=== PATIENT | female | born 1995 | race Caucasian/White ===

== ENCOUNTER 2017-07-21 16:30 | Emergency (ER) | payer BC ==
[~2017-07-21] VITALS: Ht 170.2 cm; Wt 80.7 kg
--- NOTE | 2017-07-21 16:32 | ER Report ---
History and Physical Time Seen By MD: 16:31 HPI/ROS I did not see this patient. See note by MLP Allergies: Coded Allergies: No Known Drug Allergies (Unverified , 07/21/17) Home Meds Active Scripts Benzonatate 100 Mg Cap (TESSALON PERLE 100 MG CAP) 100 Mg Capsule, 100 MG PO TID Y for COUGH, #15 CAP Prov:RACHEAL SORIA PA-C 07/21/17 Reported Medications Albuterol Sulfate (PROVENTIL HFA) 6.7 Gm Inh, 1-2 PUFF INH 3-4XD, INH 07/21/17 Constitutional Vital Sign - Last 24 Hours 07/21/17 16:38 Pulse 109 Resp 16 B/P (MAP) 140/82 Pulse Ox 95 Medical Decision Making Data Points Laboratory Hematology Test 07/21/17 16:45 Influenza Virus Type A (PCR) Negative (NEGATIVE) Influenza Virus Type B (PCR) Negative (NEGATIVE) Group A Streptococcus Screen Negative (NEGATIVE) Chemistry Test 07/21/17 16:45 Influenza Virus Type A (PCR) Negative (NEGATIVE) Influenza Virus Type B (PCR) Negative (NEGATIVE) Group A Streptococcus Screen Negative (NEGATIVE) Microbiology Microbiology Date/Time Source Procedure Growth Status 07/21/17 16:45 Throat Group A Streptococcus Screen ([facility]) - Final CONFIRMATORY CULTURE NEGATIVE FOR WILLIAM... Complete ED Course/Re-evaluation ED Course see mlp note Decision to Disposition Date: Jul 25, 2017 Decision to Disposition Time: 07:25 (see MLP note for actual times) Depart Departure Latest Vital Signs Vital Signs Date Time Temp Pulse Resp B/P (MAP) Pulse Ox O2 Delivery O2 Flow Rate FiO2 07/21/17 16:38 109 16 140/82 95 New Scripts Benzonatate 100 Mg Cap (TESSALON PERLE 100 MG CAP) 100 Mg Capsule 100 MG PO TID Y for COUGH, #15 CAP Prov: RACHEAL SORIA PA-C 07/21/17 JUDITH RODRIGUEZ MD Jul 21, 2017 16:32
[2017-07-21 16:38] VITALS: BP 140/82
[2017-07-21] MEDS ORDERED: ALB6.7R INH (16:38)
--- NOTE | 2017-07-21 16:55 | ER Report ---
History and Physical Time Seen By MD: 16:35 Hx. of Stated Complaint: PATIENT PRESENTS WITH COUGH AND CHEST PAIN FROM COUGHING WELL SORE THROAT , HORSE VOICE SINCE EARLIER THIS WEEK. TOOK A FLIGHT TO [place] AND SINCE THEN SHE HAS HAD EAR PAIN HPI/ROS CHIEF COMPLAINT: Cough, sore throat HISTORY OF PRESENT ILLNESS: Patient is a 21-year-old female accompanied by her significant other, who presents the ED with complaint of cough and sore throat for the past 3 days. Patient states that she has been hoarse recently. She denies any fever or shortness of breath. She has been taking Tylenol with minimal relief. REVIEW OF SYSTEMS: Constitutional: No fever, no chills. Eyes: No discharge. ENT: See history of present illness. Cardiovascular: No chest pain, no palpitations. Respiratory: See history of present illness. Musculoskeletal: No back pain. Skin: No rashes. Neurological: No headache. Allergies: Coded Allergies: No Known Drug Allergies (Unverified , 07/21/17) Home Meds Active Scripts Benzonatate 100 Mg Cap (TESSALON PERLE 100 MG CAP) 100 Mg Capsule, 100 MG PO TID Y for COUGH, #15 CAP Prov:RACHEAL SORIA PA-C 07/21/17 Reported Medications Albuterol Sulfate (PROVENTIL HFA) 6.7 Gm Inh, 1-2 PUFF INH 3-4XD, INH 07/21/17 Reviewed Nurses Notes: Yes Old Medical Records Reviewed: Yes Hx Substance Use Disorder: No Constitutional Vital Sign - Last 24 Hours 07/21/17 16:38 Pulse 109 Resp 16 B/P (MAP) 140/82 Pulse Ox 95 Physical Exam General Appearance: The patient is alert, has no immediate need for airway protection and no signs of toxicity. She appears to be in no acute distress. Eyes: Pupils equal and round no pallor or injection. ENT, Mouth: Mucous membranes are moist. Respiratory: There are no retractions, lungs are clear to auscultation. Cardiovascular: Regular rate and rhythm. Skin: Warm and dry, no rashes. Musculoskeletal: Neck is supple non tender. Extremities are nontender, nonswollen and have full range of motion. DIFFERENTIAL DIAGNOSIS: After history and physical exam differential diagnosis was considered for cough and sore throat including pneumonia, strep pharyngitis , upper respiratory infection, influenza. This is an incomplete list. Medical Decision Making Data Points Laboratory Hematology Test 07/21/17 16:45 Influenza Virus Type A (PCR) Negative (NEGATIVE) Influenza Virus Type B (PCR) Negative (NEGATIVE) Group A Streptococcus Screen Negative (NEGATIVE) Chemistry Test 07/21/17 16:45 Influenza Virus Type A (PCR) Negative (NEGATIVE) Influenza Virus Type B (PCR) Negative (NEGATIVE) Group A Streptococcus Screen Negative (NEGATIVE) ED Course/Re-evaluation ED Course Will obtain a strep and influenza swabs. Decision to Disposition Date: Jul 21, 2017 Decision to Disposition Time: 17:35 Depart Departure Latest Vital Signs Vital Signs Date Time Temp Pulse Resp B/P (MAP) Pulse Ox O2 Delivery O2 Flow Rate FiO2 07/21/17 16:38 109 16 140/82 95 Impression: Primary Impression: Upper respiratory infection Condition: Improved Disposition: HOME OR SELF-CARE New Scripts Benzonatate 100 Mg Cap (TESSALON PERLE 100 MG CAP) 100 Mg Capsule 100 MG PO TID Y for COUGH, #15 CAP Prov: RACHEAL SORIA PA-C 07/21/17 Patient Instructions: Upper Respiratory Infection (ED) Additional Instructions: Stay well hydrated. Follow up with your primary care provider in 2-3 days. If having any worsening/persisting symptoms may return to the Emergency Department. Problem Qualifiers Primary Impression: Upper respiratory infection URI type: unspecified URI Qualified Codes: J06.9 - Acute upper respiratory infection, unspecified RACHEAL SORIA PA-C Jul 21, 2017 16:55
[2017-07-21] MEDS ORDERED: BENZ100C4 PO (17:31)
== END 2017-07-21 17:45 | disposition home or self-care (01) ==
LOC: ER 16:39
DX: J06.9 Acute upper respiratory infection, unspecified (principal)
CPT/HCPCS: 87081; 87502; 87880; 99282

== ENCOUNTER 2017-09-23 23:39 | Emergency (ER) | payer BC ==
[2017-09-23 23:43] VITALS: BP 133/70
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
== END 2017-09-24 00:30 | disposition home or self-care (01) ==
LOC: ER 23:43
DX: S41.111A Laceration without foreign body of right upper arm, initial encounter (principal); F10.920 Alcohol use, unspecified with intoxication, uncomplicated
CPT/HCPCS: 99284

== ENCOUNTER → 2017-09-23 | Outpatient (CLI) | payer BC ==
[~2017-09-23] MED LIST: ALB6.7R INH; BENZ100C4 PO
== END ==
LOC: AMB 23:32
PROVIDERS: ATTEND Nurse Practitioner
DX: S61.511A Laceration without foreign body of right wrist, initial encounter (principal); F10.10 Alcohol abuse, uncomplicated; W25.XXXA Contact with sharp glass, initial encounter
CPT/HCPCS: A0425; A0429